=== PATIENT | female | born 1990 | race Caucasian/White ===

== ENCOUNTER 2021-02-03 21:50 | Emergency (ER) | payer MEDICAID ==
[~2021-02-03 21:50] MED LIST: BUSP5TAB59 PO; EPIN0.3P3 IJ; EPINEPHRINE; GABA-486 PO; LEVO200T6 PO; LEVO25TA5 PO; METF-478 PO; MULT1CAP27 PO; PRD50T PO; RT-ALBUINH IH; SERT100T PO; ZOLP5TAB PO; albuterol inhaler; buspirone; calcium; flexeril; gabapentin; iron; levothyroxine; metformin; vitamin D; zoloft
[2021-02-03] MEDS ORDERED: ACETAMINOPHEN 500 MG TAB (TYLENOL) PO ONE (22:30)
[2021-02-03] MEDS ORDERED: KETOROLAC 30 MG/ML VIAL IVP ONE (22:30)
[2021-02-03] MEDS ORDERED: ONDANSETRON 4 MG/2 ML (SDV) Z0FRAN IVP ONE (22:30)
[2021-02-03] MEDS ORDERED: NS IV 1000 ML 1,000 ML IV SCH ×2 (22:30→23:45)
[2021-02-03 23:32] LABS: BASOPHILS % (AUTO) 1 % (0-10); EOSINOPHILS % (AUTO) 0 % (0-10); HEMATOCRIT 39 % (35-52); HEMOGLOBIN 13.5 g/dL (11.5-16.0); LYMPHOCYTES % (AUTO) 12 % (12-44); MEAN CORPUSCULAR HEMOGLOBIN 30 pg (25-34); MEAN CORPUSCULAR HGB CONC 34 g/dL (32-36); MEAN CORPUSCULAR VOLUME 87 fL (80-99); MEAN PLATELET VOLUME 10.4 fL (9.0-12.2); MONOCYTES % (AUTO) 13 % (0-12); NEUTROPHILS # (AUTO) 5.8 10^3/uL (1.8-7.8); NEUTROPHILS % (AUTO) 73 % (42-75); PLATELET COUNT 272 10^3/uL (130-400); WHITE BLOOD COUNT 7.8 10^3/uL (4.3-11.0)
[2021-02-03 23:42] LABS: POTASSIUM 3.9 MMOL/L (3.6-5.0)
[2021-02-03 23:47] LABS: CREATININE SERUM 0.68 MG/DL (0.60-1.30)
[2021-02-04] MEDS ORDERED: ONDA4TAB11 PO (00:35)
[2021-02-04] MEDS ORDERED: AMOX-358 PO (00:35)
--- NOTE | 2021-02-04 00:35 | ED General ---
General Chief Complaint: COVID19 Suspect/Confirmed Stated Complaint: FEVER / HEADACHE / SORE THROAT Source of Information: Patient Exam Limitations: No Limitations History of Present Illness Date Seen by Provider: Feb 03, 2021 Time Seen by Provider: 22:20 Initial Comments Patient is a 30-year-old female who presents to the emergency department today with a chief complaint of fever, headache, diarrhea, earaches and sore throat. She states her symptoms started last Tuesday. She has been using 800 mg ibuprofen for her symptoms, last dose was at about 530. She states her cough is dry. She complains of some nausea. No discrete abdominal pain, no burning with urination or abnormal vaginal discharge. No rashes joint pain or swelling. She is Covid vaccinated, states she got her first 2 doses about 6 months ago. No Covid booster. She does smoke cigarettes and occasional marijuana. Denies known sick contacts but tells me she did spend the night in the [facility] on night. She states she came out with the symptoms. All other review of systems reviewed and negative except as stated. Timing/Duration: 2-3 Days Severity: Moderate Associated Systoms: Cough, Fever/Chills, Headaches, Malaise, Nausea/Vomiting Allergies and Home Medications Allergies Coded Allergies: bee venom (honey bee) (Verified Allergy, Unknown, 09/13/15) hydrocodone (Verified Allergy, Unknown, 09/13/15) Patient Home Medication List Home Medication List Reviewed: Yes Albuterol Sulfate (Proair Hfa) 8.5 Gm Hfa.aer.ad, 2 PUFF IH Q4H PRN for shortness of breath, (Reported) Entered as Reported by: KIARA MINA on 09/13/15 1319 Amoxicillin/Potassium Clav (Augmentin 875-125 Tablet) 1 Each Tablet, 1 EACH PO BID Prescribed by: MICHAEL SINHA on 02/04/21 0035 Buspirone HCl (Buspirone HCl) 5 Mg Tablet, 5 MG PO TID, (Reported) Entered as Reported by: KIARA MINA on 09/13/15 1319 Epinephrine (Epipen 2-Aldo) 0.3 Mg/0.3 Ml Auto.injct, 0.3 MG IJ for allergic reaction, (Reported) Entered as Reported by: KIARA MINA on 09/13/15 1319 Gabapentin (Gabapentin) 100 Mg Capsule, 100 MG PO TID Prescribed by: KIARA MINA on 09/13/15 1338 Levothyroxine Sodium (Levothyroxine Sodium) 25 Mcg Tablet, 25 MCG PO DAILY, (Reported) Entered as Reported by: KIARA MINA on 09/13/15 1319 Levothyroxine Sodium (Levothyroxine Sodium) 200 Mcg Tablet, 200 MCG PO DAILY, (Reported) Entered as Reported by: KIARA MINA on 09/13/15 131 Metformin HCl (Metformin HCl ER) 500 Mg Tab.er.24, 500 MG PO BID, (Reported) Entered as Reported by: KIARA MINA on 09/13/15 131 Multivitamin (Multivitamins) 1 Each Capsule, 1 EACH PO DAILY, (Reported) Entered as Reported by: KIARA MINA on 09/13/15 131 Ondansetron (Ondansetron Odt) 4 Mg Tab.rapdis, 4 MG PO Q8H PRN for nausea Prescribed by: MICHAEL SINHA on 02/04/21 0035 Prednisone (Prednisone) 50 Mg Tab, 50 MG PO DAILY Prescribed by: KIARA MINA on 09/13/15 1338 Sertraline HCl (Zoloft) 100 Mg Tablet, 200 MG PO DAILY, (Reported) Entered as Reported by: KIARA MINA on 09/13/15 131 Zolpidem Tartrate (Ambien) 5 Mg Tablet, 5 MG PO qhs PRN for insomnia, (Reported) Entered as Reported by: KIARA MINA on 09/13/15 131 Review of Systems Review of Systems Constitutional: see HPI EENTM: ear pain, throat pain Respiratory: cough Cardiovascular: no symptoms reported Gastrointestinal: diarrhea, nausea Genitourinary: no symptoms reported : No Musculoskeletal: no symptoms reported Skin: no symptoms reported Psychiatric/Neurological: Headache All Other Systems Reviewed Negative Unless Noted: Yes Past Vgeaivs-Nymphg-Gccrkl Hx Patient Social History Tobacco Use?: Yes Tobacco type used: Cigarettes Smoking Status: Current Everyday Smoker Substance use?: Yes Substance type: Marijuana Alcohol Use?: No Immunizations Up To Date Tetanus Booster (TDap): Unknown PED Vaccines UTD: Yes COVID19 [employer] 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 No Pertinent Family Hx Physical Exam Vital Signs Vital Signs - First Documented Capillary Refill : Height, Weight, BMI Height: 5'6.00" Weight: 242lbs. 5.0oz. 109.460644ms; 39.1 BMI Method:Stated General Appearance: WD/WN, Anxious Eyes: Bilateral Eye Normal Inspection, Bilateral Eye PERRL, Bilateral Eye EOMI HEENT: Moist Mucous Membranes, TM Abnormal (L), TM Abnormal (R) (Bilateral TMs with significant erythema and effusion), Tonsillar Exudate (Erythema with exudate bilaterally) Neck: Full Range of Motion, Normal Inspection, Non Tender, Supple Respiratory: Lungs Clear, Normal Breath Sounds, No Accessory Muscle Use, No Respiratory Distress, Other (Room air sats 94 to 95%) Cardiovascular: Regular Rate, Rhythm (Tachycardic in the 130s), Normal Peripheral Pulses Gastrointestinal: Normal Bowel Sounds, Non Tender, Soft Extremity: Normal Capillary Refill, Normal Inspection, Normal Range of Motion Neurologic/Psychiatric: Alert, Oriented x3, No Motor/Sensory Deficits, Normal 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/Affect, 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 Norm as Tested Skin: Normal Color, Warm/Dry Progress/Results/Core Measures Suspected Sepsis SIRS Temperature: Pulse: Respiratory Rate: Laboratory Tests 02/03/21 22:55: White Blood Count 7.8 Blood Pressure / Mean: Laboratory Tests 02/03/21 22:55: Creatinine 0.68, Platelet Count 272 Results/Orders Lab Results Laboratory Tests Test 02/03/21 22:20 02/03/21 22:42 02/03/21 22:55 Range/Units Influenza Type A (RT-PCR) Detected H Not Detecte Influenza Type B (RT-PCR) Not Detected Not Detecte SARS-CoV-2 RNA (RT-PCR) Not Detected Not Detecte Group A Streptococcus Screen NEGATIVE NEGATIVE White Blood Count 7.8 4.3-11.0 10^3/uL Red Blood Count 4.51 3.80-5.11 10^6/uL Hemoglobin 13.5 11.5-16.0 g/dL Hematocrit 39 35-52 % Mean Corpuscular Volume 87 80-99 fL Mean Corpuscular Hemoglobin 30 25-34 pg Mean Corpuscular Hemoglobin Concent 34 32-36 g/dL Red Cell Distribution Width 12.0 10.0-14.5 % Platelet Count 272 130-400 10^3/uL Mean Platelet Volume 10.4 9.0-12.2 fL Immature Granulocyte % (Auto) 0 % Neutrophils (%) (Auto) 73 42-75 % Lymphocytes (%) (Auto) 12 12-44 % Monocytes (%) (Auto) 13 H 0-12 % Eosinophils (%) (Auto) 0 0-10 % Basophils (%) (Auto) 1 0-10 % Neutrophils # (Auto) 5.8 1.8-7.8 10^3/uL Lymphocytes # (Auto) 1.0 1.0-4.0 10^3/uL Monocytes # (Auto) 1.0 0.0-1.0 10^3/uL Eosinophils # (Auto) 0.0 0.0-0.3 10^3/uL Basophils # (Auto) 0.0 0.0-0.1 10^3/uL Immature Granulocyte # (Auto) 0.0 0.0-0.1 10^3/uL Sodium Level 135 135-145 MMOL/L Potassium Level 3.9 3.6-5.0 MMOL/L Chloride Level 99 98-107 MMOL/L Carbon Dioxide Level 17 L 21-32 MMOL/L Anion Gap 19 H 5-14 MMOL/L Blood Urea Nitrogen 8 7-18 MG/DL Creatinine 0.68 0.60-1.30 MG/DL Estimat Glomerular Filtration Rate 101 BUN/Creatinine Ratio 12 Glucose Level 201 H 70-105 MG/DL Calcium Level 9.0 8.5-10.1 MG/DL Micro Results Microbiology 02/03/21 Throat Culture - Preliminary, Resulted My Orders Orders - MICHAEL SINHA MD Covid 19 Inhouse Test (02/03/21 22:30) Cbc With Automated Diff (02/03/21 22:30) Basic Metabolic Panel (02/03/21 22:30) Rapid Strep A Screen (02/03/21 22:30) Ed Iv/Invasive Line Start (02/03/21 22:30) Influenza A And B By Pcr (02/03/21 22:30) Isolation Central Supply Req (02/03/21 22:30) Ns Iv 1000 Ml (Sodium Chloride 0.9%) (02/03/21 22:30) Ketorolac Injection (Toradol Injection) (02/03/21 22:30) Ondansetron Injection (Zofran Injectio (02/03/21 22:30) Acetaminophen Tablet (Tylenol Tablet) (02/03/21 22:30) Ns Iv 1000 Ml (Sodium Chloride 0.9%) (02/03/21 23:45) Amoxicillin/Clavulanate Tablet (Augmenti (02/04/21 00:37) Rx-Ondansetron Po (Rx-Zofran Po) (02/04/21 00:37) Medications Given in ED Vital Signs/I&O 02/03/21 02/03/21 02/04/21 22:12 22:12 01:03 Temp 38.0 37.2 Pulse 136 107 Resp 20 16 B/P (MAP) 146/86 (106) 123/102 Pulse Ox 94 93 O2 Delivery Room Air Room Air Room Air Capillary Refill : Progress Note : Time: 00:29 Progress Note Heart rate is down from 130s to 109/110. She is feeling better after fluids. She is influenza A positive. She also has concomitant bilateral otitis media with a pharyngitis. We will give her some antibiotics for the otitis. Nausea medicines to her pharmacy. She has been hydrated with 2 L of fluids. Blood sugar was up at 201. We will recheck this prior to discharge. Return precautions given. She verbalizes understanding. All, questions are sought and answered Departure Impression Primary Impression: Influenza A Additional Impressions: Dehydration Bilateral otitis media Qualified Codes: H66.003 - Acute suppurative otitis media without spontaneous rupture of ear drum, bilateral Pharyngitis due to influenza Disposition: HOME, SELF-CARE Condition: Improved Departure-Patient Inst. Decision time for Depature: 00:32 Referrals: NO,LOCAL PHYSICIAN (PCP/Family) Primary Care Physician Patient Instructions: Flu, Adult ED, Dehydration, Adult ED Add. Discharge Instructions: Please drink lots of fluids to stay well-hydrated. Take ibuprofen every 6-8 hours as needed for body aches, fever over 100.4. You can also take 2 extra strength Tylenol every 6 hours for pain and fever. I have sent nausea medications to your pharmacy as well as antibiotics for your ear infection. Please complete the entire course of antibiotics. Follow up with your doctor in 1 week. Come back to the emergency room if you have any worsening symptoms, new emergent concerns. Scripts Amoxicillin/Potassium Clav (Augmentin 875-125 Tablet) 1 Each Tablet 1 EACH PO BID, #14 TAB 0 Refills Prov: MICHAEL SINHA MD 02/04/21 Ondansetron (Ondansetron Odt) 4 Mg Tab.rapdis 4 MG PO Q8H PRN for nausea, #15 TAB Prov: MICHAEL SINHA MD 02/04/21 MICHAEL SINHA MD Feb 03, 2021 22:35
[2021-02-04] MEDS ORDERED: RX-ONDANSETRON 4 MG ODT (ZOFRAN) PPK #4 PO STA (00:37)
[2021-02-04] MEDS ORDERED: AUGMENTIN 875 MG TAB (AMOXICILLIN/CLAVULANATE) PO STA (00:37)
[2021-02-04 01:03] VITALS: BP 123/102
== END 2021-02-04 01:05 | disposition home or self-care (01) ==
LOC: EDUNIT# 21:50 → ER 21:51
DX: J10.1 Influenza due to other identified influenza virus with other respiratory manifestations (principal); E86.0 Dehydration; H66.93 Otitis media, unspecified, bilateral; J45.909 Unspecified asthma, uncomplicated; F41.9 Anxiety disorder, unspecified; F32.9 Major depressive disorder, single episode, unspecified; E03.9 Hypothyroidism, unspecified; E11.9 Type 2 diabetes mellitus without complications; F17.210 Nicotine dependence, cigarettes, uncomplicated; Z20.822 Contact with and (suspected) exposure to COVID-19; Z79.890 Hormone replacement therapy; Z79.84 Long term (current) use of oral hypoglycemic drugs; Z79.899 Other long term (current) drug therapy
CPT/HCPCS: 36415; 80048; 85025; 87430; 87636